=== PATIENT | male | born 1975 | race Two or more races ===

== ENCOUNTER 2019-01-01 14:26 | Emergency (ER) | payer MEDICAID, OTHER ==
[~2019-01-01] VITALS: Ht 175.3 cm; Wt 95.3 kg
[~2019-01-01 14:26] MED LIST: HYDR-3326 PO; METF1000 PO
[2019-01-01] MEDS ORDERED: KETOROLAC TROMETHAMINE 30 MG INJ IM ONE (14:45)
[2019-01-01] MEDS ORDERED: KETOROLAC TROMETHAMINE 30 MG INJ ONE (14:48)
[2019-01-01] MEDS ORDERED: HYDROMORPHONE 1 MG/1 ML DISP.SYRIN ONE (15:18)
[2019-01-01] MEDS ORDERED: ONDANSETRON 4 MG/2 ML VIAL ONE (15:18)
--- NOTE | 2019-01-01 15:23 | NUR ---
Patient discharged to home in stable conditon. Written and verbal after care instructions given. Patient verbalizes understanding of instructions.PT WALKS IN STEADY GAIT. PT WILL TAKE THE PT HOME.
[2019-01-01] MEDS ORDERED: HYDROMORPHONE 1 MG/1 ML DISP.SYRIN IM ONE (15:30)
[2019-01-01] MEDS ORDERED: ONDANSETRON ODT 4 MG TAB.RAPDIS SL ONE (15:30)
== END 2019-01-01 15:26 | disposition home or self-care (01) ==
LOC: ER 14:26
DX: M17.0 Bilateral primary osteoarthritis of knee (principal); M19.072 Primary osteoarthritis, left ankle and foot; M19.071 Primary osteoarthritis, right ankle and foot; J45.909 Unspecified asthma, uncomplicated; E11.8 Type 2 diabetes mellitus with unspecified complications; F17.200 Nicotine dependence, unspecified, uncomplicated; Z79.899 Other long term (current) drug therapy
CPT/HCPCS: 96372 ×2; 99283; J1170; J1885; J2405; A4663

== ENCOUNTER 2019-04-07 00:42 | Emergency (ER) | payer MEDICAID ==
[~2019-04-07] VITALS: Ht 175.3 cm; Wt 90.7 kg
--- NOTE | 2019-04-07 00:56 | NUR ---
Dr. Sarmiento at bedside for MSE.
[2019-04-07] MEDS ORDERED: HYDROCODONE/APAP 10-325 MG TABLET PO ONE (01:00)
[2019-04-07] MEDS ORDERED: HYDROCODONE/APAP 10-325 MG TABLET ONE (01:02)
--- NOTE | 2019-04-07 01:07 | NUR ---
Patient discharged to home in stable conditon. Written and verbal after care instructions given. Patient verbalizes understanding of instructions. Pt ambulated out of ER with steady gait, no acute signs of distress, VSS, all belongings taken.
[2019-04-07 01:09] VITALS: BP 169/88
== END 2019-04-07 01:09 | disposition home or self-care (01) ==
LOC: ER 00:47
DX: M10.9 Gout, unspecified (principal); J45.909 Unspecified asthma, uncomplicated; E11.9 Type 2 diabetes mellitus without complications; F17.200 Nicotine dependence, unspecified, uncomplicated; Z79.899 Other long term (current) drug therapy; Z79.84 Long term (current) use of oral hypoglycemic drugs
CPT/HCPCS: A4663